=== PATIENT | male | born 1955 | race Caucasian/White ===

== ENCOUNTER → 2016-06-21 | Outpatient (CLI) | payer OTHER ==
[~2016-06-21] MED LIST: IOPAMIDOL (ISOVUE-300) 100 ML BTL IV ONE
== END ==
LOC: FIMAGING 12:15
PROVIDERS: ATTEND Internal Medicine
DX: J90 Pleural effusion, not elsewhere classified (principal); R16.1 Splenomegaly, not elsewhere classified; R59.0 Localized enlarged lymph nodes
CPT/HCPCS: Q9967

== ENCOUNTER → 2016-06-25 | Outpatient (CLI) | payer OTHER | LOC: FIMAGING 13:45 | PROVIDERS: ATTEND Internal Medicine Hematology & Oncology | DX: M79.89 Other specified soft tissue disorders (principal); R06.02 Shortness of breath; R59.0 Localized enlarged lymph nodes; Z85.72 Personal history of non-Hodgkin lymphomas ==

== ENCOUNTER → 2016-06-28 | Outpatient (CLI) | payer OTHER ==
[~2016-06-28] MED LIST changes: -IOPAMIDOL (ISOVUE-300) 100 ML BTL IV ONE; +LIDOCAINE 1% 30 ML SDV ONE; +NA BICARBONATE 50 MEQ/50 ML VIAL ONE
[2016-06-29 15:51] LABS: FINAL DIAGNOSIS See Comments; MICROSCOPIC DESCRIPTION See Comments
== END ==
LOC: FIMAGING 07:20
PROVIDERS: ATTEND Internal Medicine Hematology & Oncology
PROC: 0DBW3ZX Excision of Peritoneum, Percutaneous Approach, Diagnostic (ICD-10-PCS; principal; 2016-06-28)
DX: C83.13 Mantle cell lymphoma, intra-abdominal lymph nodes (principal)
CPT/HCPCS: 88184-90; 88185-91

== ENCOUNTER → 2016-06-29 | Outpatient (CLI) | payer OTHER ==
[2016-06-29 16:02] LABS: LD, PLEURAL FLUID 460 IU/L
== END ==
LOC: FIMAGING 12:43
PROVIDERS: ATTEND Internal Medicine Hematology & Oncology
PROC: 0W993ZZ Drainage of Right Pleural Cavity, Percutaneous Approach (ICD-10-PCS; principal; 2016-06-29)
DX: J90 Pleural effusion, not elsewhere classified (principal); C85.90 Non-Hodgkin lymphoma, unspecified, unspecified site; Z98.890 Other specified postprocedural states

== ENCOUNTER → 2016-07-04 | Day surgery (SDC) | payer OTHER | END | disposition home or self-care (01) | LOC: FIMAGING 12:46 | PROVIDERS: ATTEND Internal Medicine Hematology & Oncology | PROC: 02HV33Z Insertion of Infusion Device into Superior Vena Cava, Percutaneous Approach (ICD-10-PCS; principal; 2016-07-04) | DX: C85.90 Non-Hodgkin lymphoma, unspecified, unspecified site (principal) | CPT/HCPCS: 36569; 77001; C1751 ==

== ENCOUNTER → 2016-07-17 | Outpatient (CLI) | payer OTHER | LOC: FIMAGING 14:42 | PROVIDERS: ATTEND Internal Medicine Hematology & Oncology | DX: J90 Pleural effusion, not elsewhere classified (principal); C85.90 Non-Hodgkin lymphoma, unspecified, unspecified site ==

== ENCOUNTER → 2016-08-10 | Outpatient (CLI) | payer OTHER ==
[~2016-08-10] MED LIST changes: +HYDROCORTISONE SOD SUCCINATE IT SCH; +METHOTREXATE SODIUM IT SCH; +NS IT SCH
[2016-08-10 16:14] LABS: CSF APPEARANCE CLEAR (CLEAR); CSF COLOR COLORLESS (COLORLESS)
[2016-08-10 16:15] LABS: CSF SUPERNATANT COLORLESS (COLORLESS)
[2016-08-10 16:21] LABS: WBC, CSF 0 /mm3 (0-5)
[2016-08-10 16:40] LABS: PROTEIN, CSF 91 mg/dL (12-60)
== END ==
LOC: FIMAGING 13:07
PROVIDERS: ATTEND Internal Medicine Hematology & Oncology
PROC: 3E0S305 Introduction of Other Antineoplastic into Epidural Space, Percutaneous Approach (ICD-10-PCS; principal; 2016-08-10)
DX: Z51.11 Encounter for antineoplastic chemotherapy (principal); C83.10 Mantle cell lymphoma, unspecified site
CPT/HCPCS: J9250

== ENCOUNTER → 2016-09-03 | Outpatient (CLI) | payer OTHER ==
[~2016-09-03] MED LIST changes: +HYDROCORTISONE SOD SUCCINATE IT ONE; -HYDROCORTISONE SOD SUCCINATE IT SCH; +METHOTREXATE SODIUM IT ONE; -METHOTREXATE SODIUM IT SCH; -NS IT SCH
[2016-09-03 13:10] LABS: CSF APPEARANCE CLEAR (CLEAR); CSF COLOR COLORLESS (COLORLESS); CSF SUPERNATANT COLORLESS (COLORLESS); WBC, CSF 0 /mm3 (0-5)
[2016-09-03 13:38] LABS: PROTEIN, CSF 78 mg/dL (12-60)
[2016-09-05 11:21] LABS: FINAL DIAGNOSIS See Comments; MICROSCOPIC DESCRIPTION See Comments; SPECIAL STUDIES See Comments
== END ==
LOC: FIMAGING 10:04
PROVIDERS: ATTEND Internal Medicine Hematology & Oncology
PROC: 3E0R305 Introduction of Other Antineoplastic into Spinal Canal, Percutaneous Approach (ICD-10-PCS; principal; 2016-09-03)
PROC: 009U4ZX Drainage of Spinal Canal, Percutaneous Endoscopic Approach, Diagnostic (ICD-10-PCS; principal; 2016-09-03)
DX: C83.10 Mantle cell lymphoma, unspecified site (principal)
CPT/HCPCS: 85060-90; 88184-90; 88185-91; J9250

== ENCOUNTER → 2016-09-11 | Outpatient (CLI) | payer OTHER ==
[~2016-09-11] MED LIST changes: -HYDROCORTISONE SOD SUCCINATE IT ONE; -LIDOCAINE 1% 30 ML SDV ONE; +LIDOCAINE 1% 300 MG/30 ML SDV ONE; -METHOTREXATE SODIUM IT ONE; -NA BICARBONATE 50 MEQ/50 ML VIAL ONE
[2016-09-11 19:45] LABS: LD, PLEURAL FLUID 299 IU/L
[2016-09-12 15:25] LABS: FINAL DIAGNOSIS See Comments; MICROSCOPIC DESCRIPTION See Comments; SPECIAL STUDIES See Comments
== END ==
LOC: FIMAGING 13:25
PROVIDERS: ATTEND Internal Medicine Hematology & Oncology
PROC: 0W993ZX Drainage of Right Pleural Cavity, Percutaneous Approach, Diagnostic (ICD-10-PCS; principal; 2016-09-11)
DX: J90 Pleural effusion, not elsewhere classified (principal); C83.19 Mantle cell lymphoma, extranodal and solid organ sites
CPT/HCPCS: 85060-90; 88184-90; 88185-91

== ENCOUNTER 2016-09-20 07:23 | Inpatient (IN) | payer OTHER ==
[2016-09-20 07:57] LABS: % IMMATURE GRANULYOCYTES 0.6 % (0.0-1.1); ABSOLUTE IMMATURE GRANULOCYTES 0.02 10^3/uL (0.00-0.10); ADD DIFF? NO; ATYPICAL LYMPHOCYTE FLAG 30 (0-99); LEFT SHIFT FLG 10 (0-99); MEAN CELL HEMOGLOBIN 29.1 pg (27.9-34.1); MEAN CELL HEMOGLOBIN CONCENTR. 34.2 g/dL (32.4-36.7); MEAN CELL VOLUME 85.2 fL (81.5-99.8); MEAN PLATELET VOLUME 8.8 fL (8.7-11.7); PLATELET COUNT 193 10^3/uL (150-400); RED BLOOD CELL COUNT 4.46 10^6/uL (4.40-6.38); RED CELL DISTRIBUTION WIDTH 16.5 % (11.5-15.2)
[2016-09-20 07:58] LABS: ADD MORPH? NO; ADD SCAN? NO; FRAGMENT RBC FLAG 0 (0-99); LIPEMIA HEMOLYSIS FLAG 90 (0-99); PLATELET CLUMPS FLAG 0 (0-99)
[2016-09-20] MEDS ORDERED: POTASSIUM CL IV ONE (08:00)
[2016-09-20] MEDS ORDERED: NS IV ONE ×4 (08:00→14:00)
[2016-09-20] MEDS ORDERED: MAGNESIUM SULFATE IV ONE (08:00)
[2016-09-20 08:19] LABS: ALANINE AMINOTRANSFERASE 25 IU/L (21-72); ALBUMIN 3.6 g/dL (3.5-5.0); ALKALINE PHOSPHATASE 83 IU/L (38-126); ANION GAP 11 mEq/L (8-16); ASPARTATE AMINOTRANSFERASE 19 IU/L (17-59); BILIRUBIN,TOTAL 0.5 mg/dL (0.1-1.4); CALCIUM 8.8 mg/dL (8.5-10.4); CARBON DIOXIDE 24 mEq/l (22-31); CHLORIDE 106 mEq/L (97-110); CREATININE 0.9 mg/dL (0.7-1.3); GLOMERULAR FILTRATION RATE > 60; GLUCOSE 88 mg/dL (70-100); POTASSIUM 4.5 mEq/L (3.5-5.2); SODIUM 141 mEq/L (134-144); TOTAL PROTEIN 6.6 g/dL (6.3-8.2)
--- NOTE | 2016-09-20 08:55 | GCON ---
[f rep st] CONSULTATION ONCOLOGY CONSULTATION ADMISSION DIAGNOSIS: Admission for chemotherapy with R-DHAP for mantle cell lymphoma. HISTORY OF PRESENT ILLNESS: The patient is a very pleasant, 61-year-old gentleman diagnosed with in itially an intermediate risk on the MIPI index mantle cell lymphoma on June 28, 2016. He has had 3 cycles of bendamustine and Rituxan. He has had a nice partial response treatment but because he cha s not had a complete response I opted to switch therapy. I conferred with Dr. Elvira Thomson at [facility] and she recommend that we start with R-DHAP. He is admitted today to initiate that t reatment. This will alternate with maxi R-CHOP. She may end up just taking him straight to transplant if he has had a good response to this treatmen t. 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 ANJEL 67 was 30% in the lymph node and 3% in the marrow. He is HIV and hepatitis serology negative. While he has had a good response to treatment, it has not been a complete response and I am concerne d he will not get a complete response and he is being treated with a curative intent. The treatment plan is standard chemotherapy followed by an autologous stem cell transplant. He still had a persistent right pleural effusion and on September 11, he had a right-sided thoracentesis. 2100 cc of fluid was removed. The fluid was analyzed by flow cytometry and by cytology and analytical chemistry teacher naa. The cytology revealed probable lymphoma within the fluid although we know it was positive at the beginning. The cells were positive for cyclin D1. The patient's flow cytometry on the pleural fluid however was read as negative. So it is not entire ly clear that he has residual disease but I suspect he does in the right pleural cavity. He has had CSF treatments, with the last 1 being on September 03. The glucose was low at 39 and the protein is mild ly high at 78, but the fluid was clear and there was no pleocytosis. The white count was 0 so the f low was not done. The residual disease that we see with Aida is primarily in the abdomen where there is a residual ma ss present. PAST MEDICAL HISTORY: Otherwise is really unremarkable. He has never smoked cigarettes. He has cha d his flu vaccine. He has had a pneumococcal vaccine. He has had a colonoscopy in 2014 that was un remarkable. He has had no significant surgery but had a meningioma in 2002 treated with a cyber kni fe radiotherapy. FAMILY HISTORY: Reveals father of prostate cancer at 89. His mother is 91, and still alive. He has 2 siblings, Anthony born in 1950 who lives in [place]. Yovani is born in 4 and lives in [facility]. He is healthy. REVIEW OF SYSTEMS: Reveals he is asymptomatic without any fevers, sweats, or weight loss. Denies a ny chest pain or shortness of breath. He has no abdominal pain, nausea, vomiting, and his weight is increased since going into partial remission, and his appetite is good. He has no significant dysu sosa or hematuria. He has no extremity edema or calf tenderness. Neurologically he has had no toxic ity. PHYSICAL EXAMINATION: GENERAL: Reveals a well-developed, well-nourished gentleman looking his stat ed age. NECK: He has no cervical or supraclavicular or axillary adenopathy. LUNGS: Clear at this time to percussion and auscultation. CV: S1 normal, S2 normally split. No S3-S4 or murmurs. ABD OMEN: Soft, nontender, without hepatosplenomegaly or masses detectable. There is no inguinal adeno esmer. EXTREMITIES: No extremity edema. : Normal genitalia. No scrotal masses. NEUROLOGIC: Intact. LABORATORY DATABASE: Shows that his white count today is 3.09. ANC is 2.35, hemoglobin 13, hematoc rit 38, platelet count 193,. ASSESSMENT: Mantle cell lymphoma stage 4B. The patient is being treated with aggressive second-line treatment. He is not refractory to bendamu andrew Rituxan but he has not had a complete remission so we are switching to R-DHAP and the alternat karen were discussed including the [place] regimen and including hyper CVAD. We decided to use this r egimen at the request of the machine filler shredder, Dr. Thomson because we do not want to extinguish his stem cells. He will begin treatment today. The regimen is as follows: He receives rituximab 375 mg/m2, cis-[place] by continuous infusion 100 mg/m2 with appropriate IV hydration over 24 hours on day 1, to be followed on day 2 with Paige-C 2 g/m2 q.12 hours x2 doses. He will receive dexamethasone 40 mg days 1 through 4 with this regimen. He has been taught and consents to treatment. /[id number]/MODL
[2016-09-20] MEDS ORDERED: NON-FORMULARY NEW DRUG (Ranitidine Hcl [Zantac 75] 75 MG) PO SCH (09:00)
[2016-09-20] MEDS ORDERED: ACETAMINOPHEN 325 MG TAB PO PRN ×2 (09:25→09:46)
[2016-09-20] MEDS ORDERED: ONDANSETRON DISINTEGRATING 4 MG TAB PO PRN (09:25)
[2016-09-20] MEDS ORDERED: ONDANSETRON 4 MG/2 ML VIAL IVP PRN (09:25)
[2016-09-20] MEDS ORDERED: diphenhydrAMINE 50 MG CAP PO SCH (09:46)
[2016-09-20] MEDS ORDERED: NS 500 ML IV PRN (09:46)
[2016-09-20] MEDS ORDERED: DEXAMETHASONE 10 MG/ML VIAL IVP PRN (09:46)
[2016-09-20] MEDS ORDERED: ACETAMINOPHEN 325 MG TAB PO SCH (09:46)
[2016-09-20] MEDS ORDERED: HYDROCORTISONE 100 MG/2 ML VIAL IVP PRN (09:46)
[2016-09-20] MEDS ORDERED: MEPERIDINE 25 MG/ML SYR IVP PRN (09:46)
[2016-09-20] MEDS ORDERED: NS 1,000 ML IV PRN (09:46)
[2016-09-20] MEDS: ACYCLOVIR 400 MG TAB PO SCH ×2 (10:11→20:28)
[2016-09-20] MEDS: FAMOTIDINE 20 MG TAB PO SCH ×2 (10:11→20:28)
[2016-09-20] MEDS ORDERED: ACETAMINOPHEN 325 MG TAB PO ONE (10:30)
[2016-09-20] MEDS ORDERED: diphenhydrAMINE 50 MG CAP PO ONE (11:00)
[2016-09-20] MEDS ORDERED: PALONOSETRON HCL 0.25 MG/5 ML VIAL IVP ONE ×3 (11:30→16:30)
[2016-09-20] MEDS ORDERED: FOSAPREPITANT 150 MG in NS 250 ML IV ONE ×2 (11:30→13:30)
[2016-09-20] MEDS ORDERED: RITUXIMAB IV ONE ×2 (11:30→12:00)
--- NOTE | 2016-09-20 12:15 | GHP ---
[f rep st] HISTORY AND PHYSICAL DATE OF ADMISSION: 09/20/2016 CHIEF COMPLAINT: Admission for chemotherapy with R-DHAP for mantle cell lymphoma. HISTORY OF PRESENT ILLNESS: Patient is a pleasant, 61-year-old male initially diagnosed with mantle cell lymphoma June 28, 2016. He is status post 3 cycles of bendamustine and Rituxan and has had a partial response to treatment. He is followed by Dr. Mathews who has decided to switch therapy. This regimen will be alternated with maxi-R-CHOP. He is also followed by Dr. Elvira Thomson who may just take him straight to transplant, if he has a good response to this treatment. He has CTN1 mutation. States that he has been doing well since his last chemotherapy 3 weeks ago. Has an occasional stress headache that is relieved by Tylenol. Denies fevers, chills, or sweats. No nausea, vomiting, diarrhea. Has good energy and good p.o. intake. He has had a right-sided pleural effusion on September 11 with thoracentesis. Denies any recent shortness of breath. REVIEW OF SYSTEMS: I completed a 10-point review of systems. Negative, except noted in HPI. PAST MEDICAL HISTORY: Mantle cell lymphoma, hypothyroidism, GERD. PAST SURGICAL HISTORY: Vasectomy, oral surgeries. SOCIAL HISTORY: Lives alone in [place]. Denies alcohol, illicits, or tobacco. FAMILY HISTORY: Mother with breast cancer. Father with CABG and prostate cancer. MEDICATIONS: Acyclovir, ranitidine, levothyroxine, Tylenol, as needed. ALLERGIES: No known drug allergies. PHYSICAL EXAMINATION: VITAL SIGNS: Afebrile. T 36.6, BP 157/92, HR 75, RR 12 , 95% RA. GENERAL: Patient is well-appearing male sitting up in chair. HEENT : PERRLA. EOMI. Oropharynx clear. CV: Regular rate, rhythm. No murmurs, gallops, or rubs. LUNGS: Clear to auscultation bilaterally. ABDOMEN: Soft, nontender, nondistended. Positive bowel sounds. : No suprapubic or CVA tenderness. MUSCULOSKELETAL: 5/5 upper and lower extremity strength. NEURO: 2 through 12 intact. PSYCHIATRIC: Alert and oriented x3. LABORATORY DATA: These are pending. ASSESSMENT AND PLAN: 1. Mantle cell lymphoma: Patient will be treated with aggressive second-line treatment. He is not refractory to bendamustine and Rituxan, but has not had a complete remission. Thus, they are switching to R-DHAP. Then, possible transplant with Dr. Thomson. Chemo per Dr. Mathews. 2. Hypothyroidism: Continue levothyroxine. 3. Gastroesophageal reflux disease: Ranitidine. 4. Diet: Regular. 5. Deep venous thrombosis prophylaxis: Lovenox. DISPOSITION: Patient warrants inpatient admission, given aggressive chemotherapy warranting IV fluids, serial laboratory monitoring. /[id number]/MODL MTDD
[2016-09-20] MEDS ORDERED: FUROSEMIDE 20 MG/2 ML VIAL IVP ONE ×2 (13:30→16:15)
[2016-09-20] MEDS: NS IV SCH ×2 (13:58→21:56)
[2016-09-20] MEDS: POTASSIUM CL IV SCH ×2 (13:58→21:56)
[2016-09-20] MEDS: MAGNESIUM SULFATE IV SCH ×2 (13:58→21:56)
[2016-09-20] MEDS ORDERED: CISPLATIN IV ONE (14:00)
[2016-09-20] MEDS: DEXAMETHASONE 4 MG TAB PO SCH (16:26)
--- NOTE | 2016-09-20 16:36 | ECHO ---
[id number] + + [address] : : [place] [address] : : [phone] + Adult Echocardiographic Report + ----+ :Name: Bibi JOE Date: 09/20/2016 01:02 PM : : Hospital Admission Number: [id number] Location: 147: :: 1955 Gender: Male Height: 69 in : :Age: 61 yrs Race: WH Weight: 185 lb : :Reason For Study: Prechemotherapy : : BSA: 2.0 meters2 : + ----+ MMode/2D Measurements \T\ Calculations IVSd: 0.86 cm LVIDd: 4.7 cm FS: 33.1 % Ao root diam: LVPWd: 0.78 cm LVIDs: 3.1 cm EDV(Teich): 3.4 cm 101.1 ml LA dimension: ESV(Teich): 3.3 cm 38.8 ml EF(Teich): 61.6 % LVLd ap4: 8.5 cm SV(MOD-sp4): EDV(MOD-sp4): 81.0 ml 106.0 ml LVLs ap4: 7.1 cm ESV(MOD-sp4): 25.0 ml EF(MOD-sp4): 76.4 % Normal Measurement Values: + + :LVIDd (3.5-5.7cm) IVSd (0.6-1.1cm) LVPWd (0.6-1.1cm) Aortic Root (2.0-3.7cm)Left Atrium (1.5-4.0cm): :LV Vol(d) (76-115ml) LV Vol(s) (29-48ml) Ejec Fraction (50-65%)PV Grant (0.6- 1.2m/s) TV Grant (0.4-1.0m/s) : :MV E Grant (0.8-1.0m/s)MV A Grant (0.3-1.0m/s)LVOT Grant (0.7-1.2m/s) Asc Ao Grant ( 0.9-1.8m/s) : + + Doppler Measurements \T\ Calculations MV E max grant: 91.8 cm/sec Ao V2 max: 149.3 cm/sec AI max grant: 2.7 cm/sec MV A max grant: 124.9 cm/sec Ao max P.9 mmHg AI max P.00 mmHg MV E/A: 0.74 Left Ventricle The left ventricle is normal in size. There is normal left ventricular wall thickness. The left ventricle is hyperdynamic. Ejection Fraction = 70-75%. The left ventricular ejection fraction is calculated at 61.6 %. No regional wall motion abnormalities noted. Right Ventricle The right ventricle is normal in size and function. Atria The left atrial size is normal. Right atrial size is normal. Mitral Valve The mitral valve is normal in structure and function. Tricuspid Valve Normal tricuspid valve. There is mild tricuspid regurgitation. Aortic Valve The aortic valve is trileaflet. The aortic valve opens well. There is no aortic stenosis. There is no aortic insufficiency. Pulmonic Valve The pulmonic valve is normal in structure and function. There is no pulmonic valvular regurgitation. Great Vessels The aortic root is normal size. Pericardium/Pleural There is no pericardial effusion. Left pleural effusion. Conclusion A complete two-dimensional transthoracic echocardiogram was performed (2D, M-mode, Doppler and color flow Doppler). (1) Left ventricular systolic ejection fraction was normal (70%) - normal wall motion (2) No left ventricular hypertrophy (3) No diastolic dysfunction (4) Normal right ventricular size and function (5) Normal atrial dimensions (6) Grossly normal mitral valve (7) Trileaflet aortic valve without sclerosis or insufficiency (8) Mild tricuspid regurgitation (9) Normal pulmonic valve (10) No pericardial effusion. Small left pleural effusion (11) No comparison echocardiograms Final Reading Physician: Tre Hand signed on 09/20/2016 04:34 PM Ordering Physician: Zak Mathews Performed By: Summer James RDCS
[2016-09-20] MEDS: DOCUSATE SODIUM 100 MG CAP PO SCH (20:28)
[2016-09-21] MEDS: LEVOTHYROXINE 50 MCG TAB PO SCH (03:45)
[2016-09-21 04:32] LABS: % IMMATURE GRANULYOCYTES 1.9 % (0.0-1.1); ABSOLUTE IMMATURE GRANULOCYTES 0.06 10^3/uL (0.00-0.10); ADD DIFF? NO; ADD MORPH? NO; ADD SCAN? NO; ATYPICAL LYMPHOCYTE FLAG 0 (0-99); FRAGMENT RBC FLAG 0 (0-99); HEMATOCRIT 41.1 % (40.0-51.0); HEMOGLOBIN 14.1 g/dL (13.7-17.5); LEFT SHIFT FLG 40 (0-99); LIPEMIA HEMOLYSIS FLAG 90 (0-99); MEAN CELL HEMOGLOBIN CONCENTR. 34.3 g/dL (32.4-36.7); MEAN CELL VOLUME 84.4 fL (81.5-99.8); MEAN PLATELET VOLUME 8.5 fL (8.7-11.7); PLATELET CLUMPS FLAG 0 (0-99); PLATELET COUNT 166 10^3/uL (150-400); RED BLOOD CELL COUNT 4.87 10^6/uL (4.40-6.38); RED CELL DISTRIBUTION WIDTH 16.3 % (11.5-15.2)
[2016-09-21] MEDS: NS IV SCH ×3 (06:19→21:56)
[2016-09-21] MEDS: POTASSIUM CL IV SCH ×2 (06:19→21:56)
[2016-09-21] MEDS: MAGNESIUM SULFATE IV SCH ×2 (06:19→21:56)
[2016-09-21 06:23] LABS: ANION GAP 13 mEq/L (8-16); CALCIUM 9.3 mg/dL (8.5-10.4); CARBON DIOXIDE 20 mEq/l (22-31); CHLORIDE 109 mEq/L (97-110); CREATININE 0.8 mg/dL (0.7-1.3); GLOMERULAR FILTRATION RATE > 60; GLUCOSE 139 mg/dL (70-100); POTASSIUM 4.9 mEq/L (3.5-5.2); SODIUM 142 mEq/L (134-144)
--- NOTE | 2016-09-21 07:34 | SOAPPROG ---
SOAP Progress Note Assessment/Plan: Assessment: 1. Mantle cell lymphoma: Stage IVB in NE after 3 cycles of BR. In for R-DHAP. The patient is on day 2. He has no N/V. He will start TRUDY-C later today. 2. We will restart with Maxi-CHOP in about 3 weeks. He will start Neulasta on Saturday. Plan: Day 2 R-DHAP 09/21/16 07:31 09/21/16 08:21 09/21/16 08:27 Subjective: Aida is admitted for R-DHAP based on a NE to 3 rounds of BR for mantle cell lymphoma. He is recieving the R-DHAP here. He is doing well WO toxicity. After a CR he will see Elvira brown whom I am working for an auto PSCT. Objective: Vital Signs Temp Pulse Resp BP Pulse Ox 36.4 C 94 16 143/91 H 93 09/21/16 03:51 09/21/16 03:51 09/21/16 03:51 09/21/16 03:51 09/21/16 03:51 Laboratory Results 09/21/16 04:08 09/21/16 04:08 09/20/16 09/21/16 09/22/16 05:59 05:59 05:59 Intake Total 5380 Output Total 2300 Balance 3080 Looks great Lungs clear CVS reg Abd neg - Time Spent With Patient Time Spent With Patient: 25 min ICD10 Worksheet Patient Problems: Problems Problem Status Onset Loaiza's sarcoma Acute Sarcoma Acute - ICD10 Problem Qualifiers (1) Loaiza's sarcoma
--- NOTE | 2016-09-21 08:56 | HOSPPROG ---
Hospitalist Progress Note Assessment/Plan: #Mantle cell lymphoma -tolerating chemo. TTE normal -Neulasta tomorrow #h/o right pleural effusion: denies SOB #Diet: regular #DVT ppx: Lovenox #Disp: cont IV chemo Subjective: no nausea, eating well. No SOB Objective: Vital Signs Temp Pulse Resp BP Pulse Ox 36.6 C 100 16 134/86 H 93 09/21/16 08:14 09/21/16 08:14 09/21/16 08:14 09/21/16 08:14 09/21/16 08:14 Laboratory Results 09/21/16 04:08 09/21/16 04:08 09/20/16 09/21/16 09/22/16 05:59 05:59 05:59 Intake Total 5380 Output Total 2300 Balance 3080 - Physical Exam Constitutional: no apparent distress Eyes: PERRL Ears, Nose, Mouth, Throat: moist mucous membranes Cardiovascular: regular rate and rhythym, no murmur, rub, or gallop Respiratory: other (decreased BS left lung) Gastrointestinal: normoactive bowel sounds Genitourinary: no bladder fullness Skin: warm Musculoskeletal: full muscle strength Neurologic: AAOx3 Psychiatric: interacting appropriately ICD10 Worksheet Patient Problems: Problems Problem Status Onset Loaiza's sarcoma Acute Sarcoma Acute
[2016-09-21] MEDS: DOCUSATE SODIUM 100 MG CAP PO SCH ×2 (10:48→21:56)
[2016-09-21] MEDS: FAMOTIDINE 20 MG TAB PO SCH ×2 (10:49→21:56)
[2016-09-21] MEDS: ENOXAPARIN 40 MG/0.4 ML SYR SC SCH (10:49)
[2016-09-21] MEDS: OLANZapine 2.5 MG TAB PO SCH (10:49)
[2016-09-21] MEDS: ACYCLOVIR 400 MG TAB PO SCH ×2 (10:49→21:56)
[2016-09-21] MEDS: prednisoLONE ACET 1% 5 ML OPHT.BTL EACHEYE SCH ×3 (10:52→21:55)
[2016-09-21] MEDS: DEXAMETHASONE 4 MG TAB PO SCH (18:21)
[2016-09-21] MEDS: CYTARABINE IV SCH (18:24)
[2016-09-22] MEDS: LEVOTHYROXINE 50 MCG TAB PO SCH (05:03)
[2016-09-22] MEDS: CYTARABINE IV SCH (05:50)
[2016-09-22] MEDS: NS IV SCH ×2 (05:50→06:25)
[2016-09-22 06:08] LABS: % IMMATURE GRANULYOCYTES 1.9 % (0.0-1.1); ABSOLUTE IMMATURE GRANULOCYTES 0.08 10^3/uL (0.00-0.10); ADD DIFF? NO; ADD MORPH? NO; ADD SCAN? NO; ATYPICAL LYMPHOCYTE FLAG 0 (0-99); FRAGMENT RBC FLAG 0 (0-99); HEMATOCRIT 33.6 % (40.0-51.0); HEMOGLOBIN 11.4 g/dL (13.7-17.5); LEFT SHIFT FLG 10 (0-99); LIPEMIA HEMOLYSIS FLAG 90 (0-99); MEAN CELL HEMOGLOBIN 28.8 pg (27.9-34.1); MEAN CELL HEMOGLOBIN CONCENTR. 33.9 g/dL (32.4-36.7); MEAN CELL VOLUME 84.8 fL (81.5-99.8); MEAN PLATELET VOLUME 9.1 fL (8.7-11.7); PLATELET CLUMPS FLAG 0 (0-99); PLATELET COUNT 140 10^3/uL (150-400); RED BLOOD CELL COUNT 3.96 10^6/uL (4.40-6.38); RED CELL DISTRIBUTION WIDTH 16.2 % (11.5-15.2)
[2016-09-22] MEDS: MAGNESIUM SULFATE IV SCH (06:25)
[2016-09-22] MEDS: POTASSIUM CL IV SCH (06:25)
[2016-09-22 06:28] LABS: ANION GAP 7 mEq/L (8-16); CALCIUM 8.9 mg/dL (8.5-10.4); CARBON DIOXIDE 22 mEq/l (22-31); CHLORIDE 109 mEq/L (97-110); CREATININE 0.8 mg/dL (0.7-1.3); GLOMERULAR FILTRATION RATE > 60; GLUCOSE 138 mg/dL (70-100); POTASSIUM 4.8 mEq/L (3.5-5.2); SODIUM 138 mEq/L (134-144)
[2016-09-22] MEDS: OLANZapine 2.5 MG TAB PO SCH (08:46)
[2016-09-22] MEDS: DOCUSATE SODIUM 100 MG CAP PO SCH (08:46)
[2016-09-22] MEDS: ACYCLOVIR 400 MG TAB PO SCH (08:46)
[2016-09-22] MEDS: FAMOTIDINE 20 MG TAB PO SCH (08:46)
[2016-09-22] MEDS: ENOXAPARIN 40 MG/0.4 ML SYR SC SCH (08:47)
[2016-09-22] MEDS: prednisoLONE ACET 1% 5 ML OPHT.BTL EACHEYE SCH (08:47)
[2016-09-22 08:53] VITALS: BP 138/74; PULSE 79; RESP 18; TEMP 97.8; O2SAT 92
--- NOTE | 2016-09-22 10:57 | HOSPPROG ---
Hospitalist Progress Note Assessment/Plan: #Mantle cell lymphoma -tolerating chemo. TTE normal -Neulasta tomorrow in clinic -Dex today and tomorrow -cont steroid eye drops #h/o right pleural effusion: denies SOB #Diet: regular #DVT ppx: Lovenox #Disp: DC today Subjective: no n/v or SOB Objective: Vital Signs Temp Pulse Resp BP Pulse Ox 36.6 C 79 18 138/74 H 92 09/22/16 08:52 09/22/16 08:52 09/22/16 08:52 09/22/16 08:52 09/22/16 08:52 Laboratory Results 09/22/16 05:50 09/22/16 05:50 09/21/16 09/22/16 09/23/16 05:59 05:59 05:59 Intake Total 5380 5017 350 Output Total 2300 800 2200 Balance 3080 3349 -8068 ICD10 Worksheet Patient Problems: Problems Problem Status Onset Mantle cell lymphoma Acute Loaiza's sarcoma Acute Sarcoma Acute
--- NOTE | 2016-09-22 11:17 | GDS ---
[f rep st] DISCHARGE SUMMARY DISCHARGE DIAGNOSES: Mantle cell lymphoma, hypothyroidism, gastroesophageal reflux disease. HISTORY OF PRESENT ILLNESS: The patient is a 61-year-old male initially diagnosed with mantle cell lymphoma on June 28, 2016. He is status post 3 cycles of bendamustine and Rituxan. He had a parti al response to treatment. He is followed by Dr. Mathews, as well as Dr. Elvira Thomson. They decide d to switch therapy to R-DHAP. PROBLEM LIST: 1. Mantle cell lymphoma. The patient underwent second-line treatment with R-DHAP. This will be al ternated with maxi-R-CHOP. He tolerated chemo well here. We will continue the Decadron today and t omorrow, as well as prednisolone eye drops. Provided p.r.n. Zofran if needed. 2. GERD. Continue ranitidine. 3. Hypothyroidism. Continue levothyroxine. DISPOSITION: Patient is stable for discharge. FOLLOWUP: 1. Tomorrow Oncology Clinic for Gigi. 2. Follow up with Dr. Mathews as previously scheduled. /[id number]/MODL
--- NOTE | 2016-09-22 11:25 | SOAPPROG ---
SOAP Progress Note Assessment/Plan: Assessment: Assessment: 1. Mantle cell lymphoma: Stage IVB in [place] after 3 cycles of BR. R-DHAP is now completed. He is ready for discharge to home. He will follow up in our office tomorrow for Gigi an later in the week with our [place] Alysia follow up as planned. 2. 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 Plan: -D/C to home -Gigi in office tomorrow -F/U in office next week with Alysia as planned Subjective: Ready for D/C to home. No N/V. Wants to be sure I know his R thumb tremor is an old finding and unrelated to his chemo. Objective: Vital Signs Temp Pulse Resp BP Pulse Ox 36.6 C 79 18 138/74 H 92 09/22/16 08:52 09/22/16 08:52 09/22/16 08:52 09/22/16 08:52 09/22/16 08:52 Laboratory Results 09/22/16 05:50 09/22/16 05:50 09/20/16 09/21/16 09/22/16 23:59 23:59 23:59 Intake Total 3537 4668 2542 Output Total 500 2600 2200 Balance 3037 2068 342 Physical Exam - Physical Exam General Appearance: alert, no apparent distress Respiratory: lungs clear Cardiac/Chest: regular rate, rhythm Abdomen: normal bowel sounds Extremities: other (tremor R thumb) Neuro/Psych: normal mood/affect, oriented x 3 ICD10 Worksheet Patient Problems: Problems Problem Status Onset Mantle cell lymphoma Acute Loaiza's sarcoma Acute Sarcoma Acute
[2016-09-22] MEDS: DEXAMETHASONE 4 MG TAB PO SCH (11:47)
[2016-09-22] MEDS ORDERED: prednisoLONE ACET 1% 5 ML OPHT.BTL EACHEYE SCH ×2 (12:00→16:00)
== END 2016-09-22 13:14 | disposition home or self-care (01) | DRG 847 ==
LOC: F1N 07:23
PROVIDERS: ADMIT Internal Medicine Hematology & Oncology; ATTEND Internal Medicine
PROC: 3E0330M Introduction of Antineoplastic, Monoclonal Antibody, into Peripheral Vein, Percutaneous Approach (ICD-10-PCS; principal; 2016-09-20)
DX: Z51.11 Encounter for antineoplastic chemotherapy (principal); C83.10 Mantle cell lymphoma, unspecified site; K21.9 Gastro-esophageal reflux disease without esophagitis; E03.9 Hypothyroidism, unspecified
CPT/HCPCS: J1453; J1650; J1940; J2469; J9060; J9100; J9310

== ENCOUNTER → 2016-09-27 | Outpatient (CLI) | payer OTHER | LOC: FIMAGING 16:34 | PROVIDERS: ATTEND Nurse Practitioner | DX: Z45.2 Encounter for adjustment and management of vascular access device (principal); J90 Pleural effusion, not elsewhere classified; J98.11 Atelectasis ==

== ENCOUNTER 2016-11-01 07:54 | Inpatient (IN) | payer OTHER ==
[2016-11-01] MEDS ORDERED: NS IV ONE ×3 (08:30→13:30)
[2016-11-01] MEDS ORDERED: MAGNESIUM SULFATE IV ONE (08:30)
[2016-11-01] MEDS ORDERED: POTASSIUM CL IV ONE (08:30)
[2016-11-01] MEDS ORDERED: LORazepam 2 MG/ML INJ IVP PRN (08:43)
[2016-11-01] MEDS ORDERED: ACETAMINOPHEN 325 MG TAB PO PRN ×2 (08:43→09:06)
[2016-11-01] MEDS ORDERED: D5W 1/2 NS W/ 20 KCl/L 1,000 ML IV SCH (08:45)
[2016-11-01] MEDS ORDERED: HYDROCORTISONE 100 MG/2 ML VIAL IVP PRN (09:06)
[2016-11-01] MEDS ORDERED: DEXAMETHASONE 10 MG/ML VIAL IVP PRN (09:06)
[2016-11-01] MEDS ORDERED: NS 500 ML IV PRN (09:06)
[2016-11-01] MEDS ORDERED: NS 1,000 ML IV PRN (09:06)
[2016-11-01] MEDS ORDERED: MEPERIDINE 25 MG/ML SYR IVP PRN (09:06)
[2016-11-01] MEDS ORDERED: RITUXIMAB IV ONE (09:30)
[2016-11-01 09:46] LABS: % IMMATURE GRANULYOCYTES 1.1 % (0.0-1.1); ABSOLUTE IMMATURE GRANULOCYTES 0.05 10^3/uL (0.00-0.10); ADD DIFF? NO; ADD MORPH? NO; ADD SCAN? NO; ATYPICAL LYMPHOCYTE FLAG 0 (0-99); FRAGMENT RBC FLAG 0 (0-99); HEMATOCRIT 29.5 % (40.0-51.0); HEMOGLOBIN 10.3 g/dL (13.7-17.5); LEFT SHIFT FLG 10 (0-99); LIPEMIA HEMOLYSIS FLAG 90 (0-99); MEAN CELL HEMOGLOBIN 30.4 pg (27.9-34.1); MEAN CELL HEMOGLOBIN CONCENTR. 34.9 g/dL (32.4-36.7); MEAN PLATELET VOLUME 8.3 fL (8.7-11.7); PLATELET CLUMPS FLAG 20 (0-99); PLATELET COUNT 171 10^3/uL (150-400); RED BLOOD CELL COUNT 3.39 10^6/uL (4.40-6.38); RED CELL DISTRIBUTION WIDTH 17.7 % (11.5-15.2)
[2016-11-01 10:00] LABS: ALANINE AMINOTRANSFERASE 23 IU/L (21-72); ALBUMIN 3.7 g/dL (3.5-5.0); ALKALINE PHOSPHATASE 57 IU/L (38-126); ANION GAP 9 mEq/L (8-16); ASPARTATE AMINOTRANSFERASE 17 IU/L (17-59); BILIRUBIN,TOTAL 0.5 mg/dL (0.1-1.4); CALCIUM 8.8 mg/dL (8.5-10.4); CARBON DIOXIDE 23 mEq/l (22-31); CHLORIDE 111 mEq/L (97-110); GLOMERULAR FILTRATION RATE > 60; GLUCOSE 90 mg/dL (70-100); LACTATE DEHYDROGENASE 476 IU/L (313-618); MAGNESIUM 2.3 mg/dL (1.6-2.3); POTASSIUM 4.6 mEq/L (3.5-5.2); SODIUM 143 mEq/L (134-144); TOTAL PROTEIN 6.1 g/dL (6.3-8.2); URIC ACID 6.1 mg/dL (3.5-8.5)
[2016-11-01 10:02] LABS: INR 1.04 (0.83-1.16); PROTIME(PATIENT) 13.5 SEC (12.0-15.0)
[2016-11-01 10:03] LABS: APTT 34.2 SEC (23.0-38.0)
[2016-11-01] MEDS ORDERED: PROMETHAZINE HCL 25 MG/ML INJ IVP PRN (12:21)
[2016-11-01] MEDS ORDERED: FUROSEMIDE 20 MG/2 ML VIAL IVP ONE (13:00)
[2016-11-01] MEDS ORDERED: FOSAPREPITANT 150 MG in NS 250 ML IV ONE (13:00)
[2016-11-01] MEDS ORDERED: PALONOSETRON HCL 0.25 MG/5 ML VIAL IVP ONE (13:00)
[2016-11-01] MEDS: DEXAMETHASONE 4 MG TAB PO SCH (13:20)
[2016-11-01] MEDS: MAGNESIUM SULFATE IV SCH (13:25)
[2016-11-01] MEDS: NS IV SCH (13:25)
[2016-11-01] MEDS: POTASSIUM CL IV SCH (13:25)
[2016-11-01] MEDS: prednisoLONE ACET 1% 5 ML OPHT.BTL EACHEYE SCH ×3 (13:26→23:51)
[2016-11-01] MEDS ORDERED: CISPLATIN IV ONE (13:30)
[2016-11-01] MEDS: DOCUSATE SODIUM 100 MG CAP PO SCH ×2 (17:49→21:49)
[2016-11-01] MEDS: ACYCLOVIR 400 MG TAB PO SCH ×2 (17:50→21:49)
[2016-11-01] MEDS: FAMOTIDINE 20 MG TAB PO SCH (21:48)
[2016-11-02] MEDS: MAGNESIUM SULFATE IV SCH ×2 (01:12→10:26)
[2016-11-02] MEDS: POTASSIUM CL IV SCH ×2 (01:12→10:26)
[2016-11-02] MEDS: NS IV SCH ×3 (01:12→16:13)
--- NOTE | 2016-11-02 01:40 | GCON ---
[f rep st] CONSULTATION HISTORY: The patient is a very pleasant, 61-year-old male who was diagnosed with stage IV mantle ce ll lymphoma in approximately June of 2016. He was treated with 3 cycles of bendamustine-Rituxan wi th a good partial response, and then was switched to DHAP alternating with CHOP. He has received 1 cycle of DHAP, 1 cycle of R-CHOP, and is scheduled this admission for his last planned cycle of R-DH AP. He currently feels extremely well at this time and has no particular complaints. PAST MEDICAL HISTORY: Significant for hypothyroidism and gastroesophageal reflux disease. Surgerie s include vasectomy and oral surgery. SOCIAL HISTORY: He lives alone in [place]. PHYSICAL EXAMINATION: GENERAL: Today, he is a very pleasant male in no acute distress. VITAL SIGN S: Blood pressure is 137/82. He is afebrile. HEENT: He is not icteric. Pharynx is unremarkable. LYMPHATICS: I detect no cervical, supraclavicular adenopathy. LUNGS: Clear to auscultation and percussion. CARDIAC: Normal S1, S2 without murmurs, clicks, or added sounds. ABDOMEN: Benign wit hout organomegaly. EXTREMITIES: No edema. NEUROLOGIC: Nonfocal. White count 4.39, hemoglobin 10.3, hematocrit 29.5, platelets are 171,000. Chemistry panel is gener ally unremarkable. IMPRESSION: Patient with mantle cell lymphoma, here for R-DHAP. This will be administered per prot ocol. He will receive Neulasta after discharge, and he will need close followup with Dr. Mathews to monitor his counts as he recovers from this last cycle of chemotherapy. Plan is for an autologous stem cell transplant, followed by maintenance Rituxan. /[id number]/MODL
[2016-11-02] MEDS: LEVOTHYROXINE 50 MCG TAB PO SCH (05:34)
[2016-11-02] MEDS: prednisoLONE ACET 1% 5 ML OPHT.BTL EACHEYE SCH ×4 (05:34→23:57)
[2016-11-02 05:58] LABS: % IMMATURE GRANULYOCYTES 0.9 % (0.0-1.1); ABSOLUTE IMMATURE GRANULOCYTES 0.04 10^3/uL (0.00-0.10); ADD DIFF? NO; ADD MORPH? NO; ADD SCAN? NO; ATYPICAL LYMPHOCYTE FLAG 0 (0-99); FRAGMENT RBC FLAG 0 (0-99); HEMATOCRIT 32.7 % (40.0-51.0); HEMOGLOBIN 11.3 g/dL (13.7-17.5); LEFT SHIFT FLG 0 (0-99); LIPEMIA HEMOLYSIS FLAG 90 (0-99); MEAN CELL HEMOGLOBIN CONCENTR. 34.6 g/dL (32.4-36.7); MEAN CELL VOLUME 86.7 fL (81.5-99.8); MEAN PLATELET VOLUME 8.4 fL (8.7-11.7); PLATELET CLUMPS FLAG 0 (0-99); PLATELET COUNT 153 10^3/uL (150-400); RED BLOOD CELL COUNT 3.77 10^6/uL (4.40-6.38); RED CELL DISTRIBUTION WIDTH 17.5 % (11.5-15.2)
[2016-11-02 06:14] LABS: ALANINE AMINOTRANSFERASE 26 IU/L (21-72); ALBUMIN 3.9 g/dL (3.5-5.0); ALKALINE PHOSPHATASE 63 IU/L (38-126); ANION GAP 13 mEq/L (8-16); ASPARTATE AMINOTRANSFERASE 16 IU/L (17-59); BILIRUBIN,TOTAL 0.5 mg/dL (0.1-1.4); CALCIUM 8.8 mg/dL (8.5-10.4); CARBON DIOXIDE 19 mEq/l (22-31); CHLORIDE 110 mEq/L (97-110); CREATININE 0.8 mg/dL (0.7-1.3); GLOMERULAR FILTRATION RATE > 60; GLUCOSE 146 mg/dL (70-100); POTASSIUM 4.8 mEq/L (3.5-5.2); SODIUM 142 mEq/L (134-144); TOTAL PROTEIN 6.5 g/dL (6.3-8.2)
[2016-11-02] MEDS: DEXAMETHASONE 4 MG TAB PO SCH (09:41)
[2016-11-02] MEDS: FAMOTIDINE 20 MG TAB PO SCH ×2 (09:41→20:29)
[2016-11-02] MEDS: DOCUSATE SODIUM 100 MG CAP PO SCH ×2 (09:41→20:29)
[2016-11-02] MEDS: ACYCLOVIR 400 MG TAB PO SCH ×2 (09:41→20:29)
--- NOTE | 2016-11-02 12:29 | SOAPPROG ---
SOAP Progress Note Assessment/Plan: Assessment: 1. Mantle cell lymphoma on rdhap Plan:Finish chemo tomorrow, tanisha Saturday 11/04, follow up Dr Mathews scheduled for next week 11/02/16 12:23 Subjective: Feels well Objective: Vital Signs Temp Pulse Resp BP Pulse Ox 97.8 F 99 16 119/71 95 11/02/16 08:32 11/02/16 08:32 11/02/16 08:32 11/02/16 08:32 11/02/16 08:32 Laboratory Results 11/02/16 05:55 11/02/16 05:55 11/01/16 11/02/16 11/03/16 05:59 05:59 05:59 Intake Total 6392 Output Total 5250 Balance 1142 PT 13.5 SEC (12.0-15.0) 11/01/16 09:35 INR 1.04 (0.83-1.16) 11/01/16 09:35 Physical Exam - Physical Exam General Appearance: alert, no apparent distress Respiratory: lungs clear Cardiac/Chest: regular rate, rhythm Abdomen: normal bowel sounds, non-tender ICD10 Worksheet Patient Problems: Problems Problem Status Onset Loaiza's sarcoma Acute Mantle cell lymphoma Acute Sarcoma Acute
--- NOTE | 2016-11-02 12:51 | GHP ---
[f rep st] HISTORY AND PHYSICAL DATE OF ADMISSION: 11/01/2016 CHIEF COMPLAINT: Admission for chemotherapy. HISTORY OF PRESENT ILLNESS: The patient is a 61-year-old male diagnosed with mantle cell lymphoma M arch 2016. He is here for his routine cycle of chemotherapy. His primary oncologist is Dr. Sandeep gonzalez. He has had several cycles of Bendamustine and Rituxan alternating with the MAXI-RCHOP. He cha s a CTN1 mutation. He was last sent for chemotherapy at the beginning of September. He says that he has felt fairly well si nce then. He currently denies any fever, chills, abdominal pain, nausea, vomiting, headache, chest pain or shortness of breath. He has no specific concerns today. PAST MEDICAL HISTORY: Mantle cell lymphoma, hypothyroidism, GERD. PAST SURGICAL HISTORY: Vasectomy and multiple oral surgeries. SOCIAL HISTORY: Lives alone in [place]. He denies tobacco, alcohol or illicit drug use. FAMILY HISTORY: Mom diagnosed with breast cancer. Father with coronary artery disease and prostate cancer. MEDICATIONS: Please see home med reconciliation, but in brief acyclovir, ranitidine, levothyroxine. ALLERGIES: 1. Amoxicillin. 2. Sulfa. 3. Allopurinol. REVIEW OF SYSTEMS: I completed a complete 10 point review of systems and was negative, except as in dicated in the HPI. OBJECTIVE: VITAL SIGNS: Blood pressure was 147/92, heart rate was 84, respiratory rate was 16, and he is 97% on room air, temperature was 97.9. GENERAL: He is a very pleasant male in no acute dist ress. HEENT: Normocephalic, atraumatic. Pupils equal and reactive to light. Extraocular muscles are intact. Oropharynx is moist. NECK: Supple with no noted JVD, thyromegaly. CARDIOVASCULAR: R egular rate and rhythm with no murmurs, rubs or gallops appreciated. LUNGS: Clear to auscultation bilaterally. No cough. ABDOMEN: Soft, normoactive bowel sounds, nontender, nondistended. MUSCULO SKELETAL: Moves all extremities. Strength intact. NEUROLOGICAL: Cranial nerves 2-12 are grossly intact. Light touch is grossly intact. Normal speech. PSYCH: Alert, oriented, linear thought pro cess. LABORATORY DATA: White blood cell count is 4.39, hemoglobin 10.3, platelet count of 171, absolute n eutrophils were 3.66. INR 1.04 with PT 13.5 and an APTT of 34.2. Sodium 143, potassium 4.6, chlori ladonna 111, CO2 23. BUN 14, creatinine 1.0, glucose of 90, uric acid 6.1, calcium 8.8, phos 4.3, mag 2 .3, total bili 0.5, AST 17, ALT 23, alkaline phosphatase 57, lactate dehydrogenase of 476, total pro tein 6.1, albumin 3.7. ASSESSMENT AND PLAN: 1. Mantle cell lymphoma. The patient is being admitted for repeat chemotherapy treatment. Orders were sent to him by Dr. Mathews but he has also been seen by Dr. Caceres and care plan was discussed w ith Dr. Caceres. This will be his last planned cycle of R-DHAP. This will be administered per protoc ol to receive new labs after discharge and close followup with Dr. Mathews regarding close lab follo wup with Dr. Mathews. Plan is for an autologous stem cell transplant followed by maintenance Rituxa n per Dr. Caceres. 2. Hypothyroidism, continue home dose levothyroxine. 3. Gastroesophageal reflux disease, continue home dose ranitidine. 4. Full code. 5. Still anticipate discharge on Saturday if no complications from chemotherapy. /[id number]/MODL
--- NOTE | 2016-11-02 15:02 | HOSPPROG ---
Hospitalist Progress Note Assessment/Plan: * mast cell lymphoma * Getting chemotherapy * Feeling great * No new complaints Subjective: No new complaints Objective: Vital Signs Temp Pulse Resp BP Pulse Ox 36.3 C 113 H 16 116/78 95 11/02/16 13:04 11/02/16 13:04 11/02/16 13:04 11/02/16 13:04 11/02/16 13:04 Laboratory Results 11/02/16 05:55 11/02/16 05:55 11/01/16 11/02/16 11/03/16 05:59 05:59 05:59 Intake Total 6392 Output Total 5250 Balance 1142 PT 13.5 SEC (12.0-15.0) 11/01/16 09:35 INR 1.04 (0.83-1.16) 11/01/16 09:35 - Physical Exam Constitutional: no apparent distress, appears nourished, not in pain Ears, Nose, Mouth, Throat: moist mucous membranes Respiratory: no respiratory distress Skin: warm Neurologic: AAOx3 Psychiatric: interacting appropriately, not anxious, not encephalopathic, thought process linear ICD10 Worksheet Patient Problems: Problems Problem Status Onset Loaiza's sarcoma Acute Mantle cell lymphoma Acute Sarcoma Acute
[2016-11-02] MEDS: CYTARABINE IV SCH (16:13)
[2016-11-02 20:20] VITALS: RESP 16
[2016-11-03] MEDS: MAGNESIUM SULFATE IV SCH (02:26)
[2016-11-03] MEDS: POTASSIUM CL IV SCH (02:26)
[2016-11-03] MEDS: NS IV SCH ×2 (02:26→03:53)
[2016-11-03] MEDS: CYTARABINE IV SCH (03:53)
[2016-11-03] MEDS: LEVOTHYROXINE 50 MCG TAB PO SCH (03:58)
[2016-11-03] MEDS: prednisoLONE ACET 1% 5 ML OPHT.BTL EACHEYE SCH ×2 (05:47→13:24)
[2016-11-03 07:49] VITALS: BP 122/72; PULSE 78; TEMP 97.8; O2SAT 95
[2016-11-03] MEDS: DEXAMETHASONE 4 MG TAB PO SCH (09:49)
[2016-11-03] MEDS: DOCUSATE SODIUM 100 MG CAP PO SCH (09:50)
[2016-11-03] MEDS: ACYCLOVIR 400 MG TAB PO SCH (09:50)
[2016-11-03] MEDS: FAMOTIDINE 20 MG TAB PO SCH (09:50)
--- NOTE | 2016-11-03 21:55 | GDS ---
[f rep st] DISCHARGE SUMMARY DISCHARGE DIAGNOSES: 1. Mantle cell lymphoma. 2. Hypothyroidism. 3. Gastroesophageal reflux disease. HISTORY: This is a 61-year-old male with a history of mantle cell lymphoma, presenting for chemothe rapy. HOSPITAL COURSE: Patient was admitted and chemotherapy was administered without any complication, a nd he was discharged home. /[id number]/MODL
[2016-11-04] MEDS ORDERED: ONDANSETRON 4 MG/2 ML VIAL IVP PRN (12:00)
== END 2016-11-03 15:38 | disposition home or self-care (01) | DRG 847 ==
LOC: F1N 07:54
PROVIDERS: ADMIT Family Medicine; ATTEND Family Medicine
PROC: 3E0330M Introduction of Antineoplastic, Monoclonal Antibody, into Peripheral Vein, Percutaneous Approach (ICD-10-PCS; principal; 2016-11-01)
DX: Z51.11 Encounter for antineoplastic chemotherapy (principal); C83.10 Mantle cell lymphoma, unspecified site; E03.9 Hypothyroidism, unspecified; K21.9 Gastro-esophageal reflux disease without esophagitis; Z80.3 Family history of malignant neoplasm of breast; Z80.42 Family history of malignant neoplasm of prostate
CPT/HCPCS: G0378; J1200; J1453; J1940; J2469; J9060; J9100; J9310

== ENCOUNTER → 2017-02-18 | Outpatient (CLI) | payer OTHER | LOC: FLAB 12:44 | PROVIDERS: ATTEND Internal Medicine Hematology & Oncology | DX: J90 Pleural effusion, not elsewhere classified (principal) ==

== ENCOUNTER → 2017-03-08 | Outpatient (CLI) | payer OTHER | LOC: FIMAGING 14:35 → FLAB 14:35 → EDSTATUS 14:36 | PROVIDERS: ATTEND Internal Medicine Hematology & Oncology | DX: J90 Pleural effusion, not elsewhere classified (principal); J98.11 Atelectasis ==

== ENCOUNTER → 2017-06-20 | Outpatient (CLI) | payer OTHER | LOC: FIMAGING 13:08 | PROVIDERS: ATTEND Internal Medicine | DX: R92.8 Other abnormal and inconclusive findings on diagnostic imaging of breast (principal) ==

== ENCOUNTER → 2018-01-09 | Outpatient (CLI) | payer OTHER ==
[~2018-01-09] MED LIST changes: +GADOBUTROL 10 ML VIAL IVP ONE; -LIDOCAINE 1% 300 MG/30 ML SDV ONE
== END ==
LOC: FIMAGING 09:42
PROVIDERS: ATTEND Neurological Surgery
DX: D32.9 Benign neoplasm of meninges, unspecified (principal); R90.82 White matter disease, unspecified; J34.89 Other specified disorders of nose and nasal sinuses
CPT/HCPCS: A9585; J1642

== ENCOUNTER → 2018-06-26 | Outpatient (CLI) | payer OTHER, MEDICARE ==
[~2018-06-26] MED LIST changes: -GADOBUTROL 10 ML VIAL IVP ONE; +IOPAMIDOL (ISOVUE-370) 150 ML BTL IV ONE
== END ==
LOC: FIMAGING 09:47
PROVIDERS: ATTEND Internal Medicine Hematology & Oncology
DX: Z45.2 Encounter for adjustment and management of vascular access device (principal); C83.17 Mantle cell lymphoma, spleen; C83.18 Mantle cell lymphoma, lymph nodes of multiple sites
CPT/HCPCS: 36598; 76000; Q9967